=== PATIENT | male | born 1970 | race Caucasian/White ===

== ENCOUNTER 2021-10-20 12:09 | Emergency (ER) | payer BC, MEDICAID ==
[2021-10-20] MEDS ORDERED: Sodium Chloride 0.9% 10 ML Syringe FLUSH PRN (12:59)
[2021-10-20] MEDS ORDERED: Ketorolac 30 MG/ML SDV IVPUSH ONE (14:11)
[2021-10-20] MEDS ORDERED: Metoclopramide 10 MG/2 ML SDV IVPUSH ONE (14:11)
[2021-10-20] MEDS ORDERED: diphenhydrAMINE 50 MG/ML SDV IVPUSH ONE (14:11)
[2021-10-20] MEDS ORDERED: Sodium Chloride 0.9% 1,000 ML IV ONE (14:11)
== END 2021-10-20 16:05 | disposition home or self-care (01) ==
LOC: JD.ED 12:09
DX: R51.9 Headache, unspecified (principal)
CPT/HCPCS: 70450; 96361; 96374; 96375; 99284; J1200; J1885; J2765; J3490; J7030; 99282